=== PATIENT | male | born 1965 | race Caucasian/White ===

== ENCOUNTER 2017-01-19 11:15 | Emergency (ER) | payer OTHER ==
--- NOTE | 2017-01-19 12:44 | UC ---
Throat Pain/Nasal Vish HPI - HPI Summary HPI Summary: 5 day history of sore throat with dysphagia, no fever. No cough, no headache. Exposed to strep 2 weeks ago. Also has a sore area along the left tongue border. This is tender but improving. - History of Current Complaint Chief Complaint: UCGeneralIllness Stated Complaint: SORE THROAT/LEFT EAR/TONGUE Time Seen by Provider: 01/19/17 12:34 Hx Obtained From: Patient Onset/Duration: Gradual Onset, Lasting Days - 5 Severity: Mild Associated Signs & Symptoms: Positive: Dysphagia - Epiglottits Risk Factors Epiglottis Risk Factors: Negative - Allergies/Home Medications Allergies/Adverse Reactions: Allergies Allergy/AdvReac Type Severity Reaction Status Date / Time No Known Allergies Allergy Verified 12/30/16 14:23 PMH/Surg Hx/FS Hx/Imm Hx - Additional Past Medical History Additional PMH: Sleep apnea, declined treatment. Previously Healthy: Yes Cardiovascular History Of: Reports: Hypertension - Surgical History Surgical History: Yes Surgery Procedure, Year, and Place: BACK SX - Family History Known Family History: Positive: Hypertension, Other - Social History Occupation: Employed Full-time Lives: With Family Alcohol Use: Daily Alcohol Amount: 1-2 glasses of wine or beer Substance Use Type: None Substance Use Comment - Amount & Last Used: tramadol Smoking Status (MU): Former Smoker Type: Cigarettes Amount Used/How Often: 1 ppd When Did the Patient Quit Smoking/Using Tobacco: 04/03/16 Review of Systems Constitutional: Fatigue Skin: Negative Eyes: Negative ENT: Sore Throat, Other - sore tongue. Respiratory: Other - history of snoring and sleep apnea, but has declined use of a machine. Cardiovascular: Negative Gastrointestinal: Negative Genitourinary: Negative Motor: Negative Neurovascular: Negative Musculoskeletal: Myalgia - chronic pain syndrome. Neurological: Negative Psychological: Negative All Other Systems Reviewed And Are Negative: Yes Physical Exam Triage Information Reviewed: Yes Appearance: Well-Appearing, Pain Distress - mild Vital Signs: Initial Vital Signs Temp 98.6 F 01/19/17 12:20 Pulse 89 01/19/17 12:20 Resp 16 01/19/17 12:20 BP 169/99 01/19/17 12:20 Pulse Ox 98 01/19/17 12:20 Vital Signs Reviewed: Yes Eyes: Positive: Conjunctiva Clear ENT: Positive: Pharyngeal erythema, TMs normal - bilateral cerumen partially obscuring., Other: - left side of tongue with healing ulcer, about 3 x 3 mm Dental Exam: Normal Neck: Positive: Supple, Enlarged Nodes @ - one left anterior cervical node. Respiratory: Positive: Lungs clear, Normal breath sounds Cardiovascular: Positive: RRR, No Murmur Skin Exam: Normal Throat Pain/Nasal Course/Dx - Course Course Of Treatment: add acetaminophen for pain control. warm water and salt gargles. Ensure that the tongue ulcer heals with PMD - Differential Dx/Diagnosis Differential Diagnosis/HQI/PQRI: Laryngitis, Pharyngitis, URI Provider Diagnoses: pharyngitis. tongue ulceration nyd Discharge - Discharge Plan Condition: Stable Disposition: HOME Patient Education Materials: Pharyngitis (ED) Additional Instructions: Use warm water and salt gargles. Ensure that the tongue ulcer heals within a week. If it does not, it should be reassessed. You can use acetaminophen for additional pain control.
[2017-01-19 13:19] VITALS: BP 165/93
== END 2017-01-19 13:20 | disposition home or self-care (01) ==
LOC: UCCORT 11:15
DX: J02.9 Acute pharyngitis, unspecified (principal); K14.0 Glossitis; Z87.891 Personal history of nicotine dependence
CPT/HCPCS: 87651; 99212; G0463

== ENCOUNTER 2017-06-15 16:12 | Emergency (ER) | payer OTHER ==
[2017-06-15 16:41] VITALS: BP 166/89
--- NOTE | 2017-06-15 17:08 | UC ---
Ear Complaint HPI - HPI Summary HPI Summary: SIX DAYS OF LEFT EAR PAIN AND MUFFLED HEARING. NO FEVER. NO CONGESTION. NO SORETHROAT. HAS BEEN USING EAR WAX REMOVAL SOLUTION AND QTIPS WITHOUT REMEDY. - History of Current Complaint Chief Complaint: UCEar Stated Complaint: LEFT EAR PAIN Time Seen by Provider: 06/15/17 16:16 Hx Obtained From: Patient Onset/Duration: Gradual Onset, Lasting Days, Still Present Severity Initially: Mild Severity Currently: Moderate Associated Signs/Symptoms: Positive: Hearing Loss - Allergies/Home Medications Allergies/Adverse Reactions: Allergies Allergy/AdvReac Type Severity Reaction Status Date / Time No Known Allergies Allergy Verified 06/15/17 16:27 PMH/Surg Hx/FS Hx/Imm Hx Previously Healthy: Yes - Surgical History Surgical History: Yes Surgery Procedure, Year, and Place: BACK SX - Family History Known Family History: Positive: Hypertension, Other - Social History Occupation: Employed Full-time Lives: With Family Alcohol Use: Occasionally Alcohol Amount: 2 drinks daily Substance Use Type: None Substance Use Comment - Amount & Last Used: tramadol Smoking Status (MU): Former Smoker Type: Cigarettes Amount Used/How Often: 1 ppd When Did the Patient Quit Smoking/Using Tobacco: 04/03/16 Review of Systems Constitutional: Negative Skin: Negative Eyes: Negative ENT: Ear Ache Respiratory: Negative Cardiovascular: Negative Gastrointestinal: Negative Genitourinary: Negative Motor: Negative Neurovascular: Negative Musculoskeletal: Negative Neurological: Negative Psychological: Negative All Other Systems Reviewed And Are Negative: Yes Physical Exam Triage Information Reviewed: Yes Appearance: Well-Appearing, No Pain Distress, Well-Nourished Vital Signs: Initial Vital Signs Temp 98.6 F 06/15/17 16:23 Pulse 87 06/15/17 16:23 Resp 17 06/15/17 16:23 BP 166/89 06/15/17 16:23 Pulse Ox 96 06/15/17 16:23 Vital Signs Reviewed: Yes ENT: Positive: Normal ENT inspection - S/P CERUMEN IRRIGATION, Pharynx normal, TMs normal - S/P CERUMEN IRRIGATION, Other: - CERUMEN IMPACTION BILATERAL EARS Dental Exam: Normal Neck exam: Normal Neck: Positive: Supple Respiratory Exam: Normal Cardiovascular Exam: Normal Cardiovascular: Positive: RRR, No Murmur Abdominal Exam: Normal Musculoskeletal Exam: Normal Neurological Exam: Normal Psychological Exam: Normal Skin Exam: Normal Ear Complaint Course/Dx - Differential Dx/Diagnosis Differential Diagnosis/HQI/PQRI: Cerumen Impaction, Otitis Externa, URI Provider Diagnoses: BILATERAL CERUMEN IMPACTION Discharge - Discharge Plan Condition: Stable Disposition: HOME Patient Education Materials: Cerumen Impaction (ED) Referrals: Jameson Gunter MD [Primary Care Provider] -
== END 2017-06-15 17:09 | disposition home or self-care (01) ==
LOC: UCCORT 16:12
DX: H61.23 Impacted cerumen, bilateral (principal); Z87.891 Personal history of nicotine dependence
CPT/HCPCS: 99213; G0463

== ENCOUNTER 2017-07-25 10:30 | Emergency (ER) | payer OTHER ==
[2017-07-25 10:45] VITALS: BP 173/107
--- NOTE | 2017-07-25 11:00 | UC ---
Skin Complaint HPI - HPI Summary HPI Summary: 1. infection of the left pinky / nail x 2 days , + redness, swelling, tenderness , 2. rash groin area, + red, itchy - History of Current Complaint Chief Complaint: UCSkin Time Seen by Provider: 07/25/17 10:35 Stated Complaint: LEFT PINKY SKIN COMPLAINT/RASH GROIN Hx Obtained From: Patient Onset/Duration: Gradual Onset, Lasting Days - 2, Still Present Timing: Constant Onset Severity: Moderate Current Severity: Moderate Location: Discrete - groin / left pinky Character: Swelling, Pain, Redness, Raised, Painful Aggravating: Touch Alleviating: Nothing Associated Signs & Symptoms: Positive: Tenderness. Negative: Nausea, Vomiting, Numbness, Thirst, Diaphoresis, Weakness, Pallor, Shivering, Fever, Chills - Allergy/Home Medications Allergies/Adverse Reactions: Allergies Allergy/AdvReac Type Severity Reaction Status Date / Time No Known Allergies Allergy Verified 07/25/17 10:37 Review of Systems Constitutional: Negative Skin: Rash Eyes: Negative ENT: Negative Respiratory: Negative Cardiovascular: Negative All Other Systems Reviewed And Are Negative: Yes PMH/Surg Hx/FS Hx/Imm Hx Previously Healthy: Yes - Surgical History Surgical History: Yes Surgery Procedure, Year, and Place: BACK SX - Family History Known Family History: Positive: Hypertension, Other - Social History Alcohol Use: Daily Alcohol Amount: 2 beers/day Substance Use Type: None Substance Use Comment - Amount & Last Used: tramadol Smoking Status (MU): Former Smoker Type: Cigarettes Amount Used/How Often: 1 ppd When Did the Patient Quit Smoking/Using Tobacco: 04/03/16 Physical Exam Triage Information Reviewed: Yes Appearance: Well-Appearing, No Pain Distress, Well-Nourished Vital Signs: Initial Vital Signs Temp 98.7 F 07/25/17 10:38 Pulse 92 07/25/17 10:38 Resp 16 07/25/17 10:38 BP 173/107 07/25/17 10:38 Pulse Ox 96 07/25/17 10:38 Vital Signs Reviewed: Yes Eyes: Positive: Conjunctiva Clear ENT: Positive: Normal ENT inspection, Hearing grossly normal, Pharynx normal Neck exam: Normal Neck: Positive: Supple, Nontender Respiratory: Positive: Chest non-tender, Lungs clear, Normal breath sounds Cardiovascular: Positive: RRR, No Murmur, Pulses Normal Abdominal Exam: Normal Skin: Positive: rashes - macular rash groin are, Other - paronychia left pinky , + erythema, tender, swelling , + white discharege Course/Dx - Diagnoses Provider Diagnoses: paronychia finger. tinea cruis Discharge - Discharge Plan Condition: Stable Disposition: HOME Prescriptions: Ketoconazole 2 % CREAM (NF) [Nizoral 2% CREAM (NF)] 1 applic TOPICAL BID #60 gm Patient Education Materials: Paronychia (ED), Jock Itch (ED) Referrals: Jameson Gunter MD [Primary Care Provider] - If Needed
== END 2017-07-25 11:03 | disposition home or self-care (01) ==
LOC: UCCORT 10:30
DX: L03.012 Cellulitis of left finger (principal); B35.6 Tinea cruris
CPT/HCPCS: 99212; G0463

== ENCOUNTER 2017-07-28 08:27 | Emergency (ER) | payer OTHER ==
[2017-07-28 08:39] VITALS: BP 151/87
[2017-07-28] MEDS ORDERED: Triamcinolone Acetonide* 40 MG/ML 1 ML VIAL IM ONE (09:05)
--- NOTE | 2017-07-28 09:12 | UC ---
Knee Pain HPI - HPI Summary HPI Summary: 51 yo male with left knee pain and swelling x 2 days hx of increased UA and gouty attacks Has had this in knees before and this is his typical presentation hx DJD hx gout hx chronic pain of uncertain cause - History of Current Complaint Chief Complaint: UCLowerExtremity Stated Complaint: LEFT KNEE PAIN Time Seen by Provider: 07/28/17 09:00 Hx Obtained From: Patient Onset/Duration: Sudden Onset, Lasting Days Severity Initially: Severe Severity Currently: Severe Pain Intensity: 8 Pain Scale Used: 0-10 Numeric Character: Aching, Throbbing Aggravating Factor(s): Movement, Weight Bearing Alleviating Factor(s): Rest, Position Able to Bear Weight: Yes Related History: Similar Episode/Dx as - gout - Allergies/Home Medications Allergies/Adverse Reactions: Allergies Allergy/AdvReac Type Severity Reaction Status Date / Time No Known Allergies Allergy Verified 07/28/17 08:39 PMH/Surg Hx/FS Hx/Imm Hx Previously Healthy: Yes Endocrine History: Dyslipidemia Cardiovascular History: Hypertension - Surgical History Surgical History: Yes Surgery Procedure, Year, and Place: BACK SX - Family History Known Family History: Positive: Hypertension, Other - Social History Alcohol Use: Daily Alcohol Amount: 2 beers/day Substance Use Type: None Substance Use Comment - Amount & Last Used: tramadol Smoking Status (MU): Former Smoker Type: Cigarettes Amount Used/How Often: 1 ppd When Did the Patient Quit Smoking/Using Tobacco: 04/03/16 Review of Systems Constitutional: Negative Skin: Negative Eyes: Negative ENT: Negative Respiratory: Negative Cardiovascular: Negative Gastrointestinal: Negative Genitourinary: Negative Motor: Negative Neurovascular: Negative Musculoskeletal: Arthralgia Neurological: Negative Psychological: Negative Is Patient Immunocompromised?: No All Other Systems Reviewed And Are Negative: Yes Physical Exam Triage Information Reviewed: Yes Appearance: Well-Appearing, No Pain Distress, Well-Nourished Vital Signs: Initial Vital Signs Temp 99.8 F 07/28/17 08:33 Pulse 126 07/28/17 08:33 Resp 20 07/28/17 08:33 BP 151/87 07/28/17 08:33 Vital Signs Reviewed: Yes Eyes: Positive: Conjunctiva Clear ENT: Positive: Hearing grossly normal. Negative: Nasal congestion, Nasal drainage, Trismus, Muffled/hoarse voice Neck: Positive: Supple, Nontender, No Lymphadenopathy Respiratory: Positive: Lungs clear, Normal breath sounds, No respiratory distress Cardiovascular: Positive: RRR, No Murmur, Tachycardia, Other: - regular pulse to my exam Musculoskeletal: Positive: Other: - see image Neurological Exam: Normal Neurological: Positive: Alert Psychological Exam: Normal Skin Exam: Normal Knee Pain Course/Dx - Differential Dx/Diagnosis Provider Diagnoses: acute monoarticular arthritis. suspect gout Discharge - Discharge Plan Condition: Stable Disposition: HOME Patient Education Materials: Low Purine Diet (ED), Gout (ED) Referrals: Jameson Gunter MD [Primary Care Provider] - 3 Days Images Front/Back of Body, Lg (Crook): 1 - large effusion/slight warmth/no erthyema
== END 2017-07-28 09:33 | disposition home or self-care (01) ==
LOC: UCCORT 08:27
DX: M13.162 Monoarthritis, not elsewhere classified, left knee (principal); M10.9 Gout, unspecified; Z87.891 Personal history of nicotine dependence
CPT/HCPCS: 96372; 99212; G0463; J3301